=== PATIENT | female | born 1990 | race Caucasian/White ===

== ENCOUNTER 2021-06-02 11:19 | Emergency (ER) | payer OTHER ==
[~2021-06-02] VITALS: Ht 157.5 cm; Wt 82.6 kg
[2021-06-02 12:03] VITALS: BP 193/108
--- NOTE | 2021-06-02 12:09 | NUR ---
30yo f c/o left-sided facial and neck numbness x few hours. patient admits to slurring of speech. denies weakness, denies pain. patient denies being under any stress lately. in ed, aox4. gcs15. pt hypertensive at 193/108. all other vs stable. patient with facial assymetry, unable to close left eye when asked to close both eyes. tongue at midline. upper and lower extremity strength 5/5. pt positioned in bed comfortably with 2 siderails up. ermd made aware of pt status. pmh: eclampsia meds: none nka
[2021-06-02] MEDS ORDERED: predniSONE 20 MG TAB PO ONE (12:20)
[2021-06-02] MEDS ORDERED: PRED20TA5 PO (12:31)
[2021-06-02] MEDS ORDERED: POLY15SO74 LEFT EYE (12:31)
[2021-06-02] MEDS ORDERED: VALA1TAB40 PO (12:31)
[2021-06-02] MEDS ORDERED: LANO1OIN26 LEFT EYE (12:31)
[2021-06-02 13:05] VITALS: BP 160/97
--- NOTE | 2021-06-02 13:06 | NUR ---
Patient discharged with v/s stable. Written and verbal after care instructions given and explained. Patient alert, oriented and verbalized understanding of instructions. Ambulatory with steady gait. All questions addressed prior to discharge. ID band removed. Patient advised to follow up with PMD. Rx of MINERAL OIL, ARTIFICIAL TEARS, PREDNISON, VALACYCLOVIR given. Patient educated on indication of medication including possible reaction and side effects. Opportunity to ask questions provided and answered.
== END 2021-06-02 13:06 | disposition home or self-care (01) ==
LOC: EDBD 11:19 → MED 11:19
DX: G51.0 Bell's palsy (principal); Z98.890 Other specified postprocedural states; Z79.899 Other long term (current) drug therapy
CPT/HCPCS: 99283; J7512